=== PATIENT | female | born 1955 | race Caucasian/White ===

== ENCOUNTER → 2016-12-22 | Day surgery (SDC) | payer OTHER ==
[~2016-12-22] VITALS: Ht 165.1 cm; Wt 64.5 kg
[~2016-12-22] MED LIST: ALEN35TA24 PO; BACTOIN EACH NARE; CALC1TAB87 PO; CALC600T25 PO; CYCLOPENTOLATE HCL 1% OPHT SOLN 2 ML BTL ONE; FLURBIPROFEN 0.03% OPHT SOLN 2.5 ML BTL ONE; FLUT50SP EACH NARE; HYALURONIDASE/LIDOCAINE/EPINEPHRINE/BUPIVACAINE 6 ML SYR ONE; HYDR-3133 PO; LIDOCAINE HCL 1% 30 ML VIAL ONE; OMEP40CA2 PO; PHENYLEPHRINE HCL 10% OPTH SOLN 5 ML BTL ONE; PROPARACAINE HCL 0.5% OPHT SOLN 15 ML BTL ONE; PROPOFOL 200 MG/20 ML AMP ONE; SERT-129 PO; SODIUM CHLORID 0.9% 500 ML INJ 500 ML ONE; TROPICAMIDE 1% OPHT SOLN 15 ML BTL ONE
[2016-12-22 07:03] VITALS: BP 126/78; PULSE 58; RESP 16; TEMP 97.8; O2SAT 98
[2016-12-22] MEDS: TOBRAMYCIN/DEXAMETHASONE OPTH OINT 3.5 GM TUBE ONE ×2 (08:15→08:25)
[2016-12-22 08:30] VITALS: TEMP 97.7
[2016-12-22 08:50] VITALS: BP 133/74; PULSE 57; RESP 14; O2SAT 98
--- NOTE | 2016-12-26 10:20 | MP ---
cc: JASON PATEL M.D. DATE OF SURGERY: 12/22/2016 [facility] [id number] PREOPERATIVE DIAGNOSIS Visually significant cataract, left eye. POSTOPERATIVE DIAGNOSIS Visually significant cataract, left eye. OPERATION Phacoemulsification with posterior chamber lens implantation, left eye. SURGEON Jason Patel MD ANESTHESIA Retrobulbar with MAC. COMPLICATIONS None. PROCEDURE After informed consent was obtained, the patient was brought into the operative suite and placed on appropriate monitors by the Anesthesia Service. The patient had received a prior retrobulbar injection of local anesthetic by the Anesthesia Service in the holding area. The patient's operative eye was then prepped and draped in the usual sterile fashion. A wire lid speculum was placed. A paracentesis incision was made in the peripheral cornea with a 1 mm ace keratome. The anterior chamber was filled with viscoelastic. The anterior chamber was then entered through a stepped, clear corneal incision using a sharp 3 mm ace keratome. A circular tear capsulorrhexis was then made with a bent needle cystitome. Following hydrodissection of the lens nucleus with balanced saline, phacoemulsification of the nucleus was performed using a modified chopping technique. The remaining cortex was removed with irrigation/aspiration. The prior two procedures were both performed using the handpieces of the [employer] phaco unit. The capsular bag was then filled with viscoelastic. The intraocular lens was then injected into the capsular bag and positioned. The type of intraocular lens and its power can be found elsewhere in this chart. The remaining viscoelastic was then removed from the anterior chamber with the IA handpiece. The anterior chamber was reformed with balanced saline. The wound was then closed securely with stromal hydration. It was found to be watertight to an intraocular pressure of at least 30 mmHg by palpation. A small amount of balanced salt solution was then removed through the paracentesis site and the intraocular pressure at the end of the case was approximately 20 by palpation. All drapes were then removed. TobraDex ointment was then placed in the eye, which was closed beneath a semi-pressure patch dressing. The patient tolerated this procedure well and left the operating room awake and alert. The patient is to follow-up in my office in the morning. ADDENDUM After the clear corneal incisions were sealed watertight, an 8 mm limbal relaxing incision was made with a 600 micron ace blade, centered around the 110 degree meridian. MD PORTILLO Mann /9:36 AM /10:17 AM
== END | disposition home or self-care (01) ==
LOC: PHSDC 06:38
PROVIDERS: ATTEND Optometrist Occupational Vision
DX: H25.12 Age-related nuclear cataract, left eye (principal)
CPT/HCPCS: 00142; 66984; J7040; V2632

== ENCOUNTER → 2017-01-26 | Day surgery (SDC) | payer OTHER ==
[~2017-01-26] MED LIST changes: -LIDOCAINE HCL 1% 30 ML VIAL ONE; +LIDOCAINE HCL 1% PF 30 ML VIAL ONE
[2017-01-26 07:50] VITALS: PULSE 66
[2017-01-26] MEDS: TOBRAMYCIN/DEXAMETHASONE OPTH OINT 3.5 GM TUBE ONE ×2 (08:53→09:06)
[2017-01-26 09:08] VITALS: TEMP 98
[2017-01-26 09:30] VITALS: BP 110/62; PULSE 65; RESP 16; O2SAT 99
--- NOTE | 2017-01-26 10:48 | MP ---
cc: JASON PATEL M.D. [facility] #[id number] DATE OF SURGERY 01/26/2017 PREOPERATIVE DIAGNOSIS Visually significant cataract right eye. POSTOPERATIVE DIAGNOSIS Visually significant cataract right eye. OPERATION Phacoemulsification with posterior chamber lens implantation, right eye. SURGEON Jason Patel MD ANESTHESIA Retrobulbar with MAC. COMPLICATIONS None PROCEDURE After informed consent was obtained, the patient was brought into the operative suite and placed on appropriate monitors by the Anesthesia Service. The patient had received a prior retrobulbar injection of local anesthetic by the Anesthesia Service in the holding area. The patient's operative eye was then prepped and draped in the usual sterile fashion. A wire lid speculum was placed. A paracentesis incision was made in the peripheral cornea with a 1 mm ace keratome. The anterior chamber was filled with viscoelastic. The anterior chamber was then entered through a stepped, clear corneal incision using a sharp 3 mm ace keratome. A circular tear capsulorrhexis was then made with a bent needle cystitome. Following hydrodissection of the lens nucleus with balanced saline, phacoemulsification of the nucleus was performed using a modified chopping technique. The remaining cortex was removed with irrigation/aspiration. The prior two procedures were both performed using the handpieces of the [employer] phaco unit. The capsular bag was then filled with viscoelastic. The intraocular lens was then injected into the capsular bag and positioned. The type of intraocular lens and its power can be found elsewhere in this chart. The remaining viscoelastic was then removed from the anterior chamber with the IA handpiece. The anterior chamber was reformed with balanced saline. The wound was then closed securely with stromal hydration. It was found to be watertight to an intraocular pressure of at least 30 mmHg by palpation. A small amount of balanced salt solution was then removed through the paracentesis site and the intraocular pressure at the end of the case was approximately 20 by palpation. All drapes were then removed. TobraDex ointment was then placed in the eye, which was closed beneath a semi-pressure patch dressing. The patient tolerated this procedure well and left the operating room awake and alert. The patient is to follow-up in my office in the morning. ADDENDUM After the clear corneal incisions were sealed water tight, an 8 mm limbal relaxing incision was made with a 600 micron ace blade, centered around the 75 degree meridian. MD SANAM Mann /10:33 AM /10:46 AM
== END | disposition home or self-care (01) ==
LOC: PHSDC 06:31
PROVIDERS: ATTEND Optometrist Occupational Vision
DX: H25.11 Age-related nuclear cataract, right eye (principal); M81.0 Age-related osteoporosis without current pathological fracture; F32.9 Major depressive disorder, single episode, unspecified; K21.9 Gastro-esophageal reflux disease without esophagitis
CPT/HCPCS: 66984; J7040; V2632

== ENCOUNTER 2017-06-04 16:31 | Emergency (ER) | payer OTHER ==
[~2017-06-04 16:31] MED LIST changes: -ALEN35TA24 PO; -CYCLOPENTOLATE HCL 1% OPHT SOLN 2 ML BTL ONE; -FLURBIPROFEN 0.03% OPHT SOLN 2.5 ML BTL ONE; -HYALURONIDASE/LIDOCAINE/EPINEPHRINE/BUPIVACAINE 6 ML SYR ONE; -LIDOCAINE HCL 1% PF 30 ML VIAL ONE; -PHENYLEPHRINE HCL 10% OPTH SOLN 5 ML BTL ONE; -PROPARACAINE HCL 0.5% OPHT SOLN 15 ML BTL ONE; -PROPOFOL 200 MG/20 ML AMP ONE; -SODIUM CHLORID 0.9% 500 ML INJ 500 ML ONE; -TROPICAMIDE 1% OPHT SOLN 15 ML BTL ONE
[2017-06-04 16:33] VITALS: BP 123/73; PULSE 77; RESP 20; TEMP 97.3; O2SAT 95
[2017-06-04] MEDS ORDERED: SODIUM CHLORIDE 0.9% FLUSH 10 ML FLUSH IVF PRN (16:45)
[2017-06-04] MEDS ORDERED: methylPREDNISolone SOD SUCC 125 MG/2 ML VIAL IVP ONE (16:45)
[2017-06-04] MEDS ORDERED: AZITHROMYCIN 250 MG TAB PO ONE (16:45)
--- NOTE | 2017-06-04 16:53 | PD ---
HPI Chief Complaint: Respiratory Symptoms Time Seen by Provider: 16:46 Travel History International Travel<30 days: No Contact w/Intl Traveler<30days: No History of Present Illness HPI Patient is a 61-year-old female presenting for evaluation of one month of a cough as well as nasal congestion. Patient states her cough is productive, she has trialed Mucinex as well as DayQuil and NyQuil with no relief her symptoms. She denies any fever, chills, shortness of breath, chest pain, abdominal pain, nausea, vomiting. Past medical history significant for GERD and depression. She has occurred daily tobacco user but has no formal diagnosis of COPD. She has no complaints of pain at this time. [facility] Past Medical History Depression: Yes Cancer: No Cardiovascular Problems: No Diabetes: No Endocrine: No GERD: Yes Genitourinary: No Hepatitis: No Hiatal Hernia: No Immune Disorder: No Musculoskeletal: Yes (OSTEOPOROSIS) Neurologic: No Psychiatric: No Reproductive: No Respiratory: No Thyroid Disease: No Past Surgical History Abdominal Surgery: No AICD: No Cardiac Surgery: No Ear Surgery: No Endocrine Surgery: No Eye Surgery: Yes (LEFT CATARACT 11/2016) Genitourinary Surgery: No Gynecologic Surgery: No Joint Replacement: No Oral Surgery: No Pacemaker: No Thoracic Surgery: No Social History Tobacco Use: Yes Substance Use: No Allergies-Medications (Allergen,Severity, Reaction): Coded Allergies: No Known Allergies (Unverified , 06/04/17) Reported Meds & Prescriptions Reported Meds & Active Scripts Active Sertraline (Sertraline HCl) 100 Mg Tab 100 Mg PO DAILY Omeprazole 40 Mg Cap 40 Mg PO DAILY Review of Systems Except as stated in HPI: all other systems reviewed are Neg HENT: Positive: Congestion Respiratory: Positive: Cough Physical Exam Narrative GENERAL: Well-developed, well-nourished, alert female. Resting comfortably in no acute distress. SKIN: Warm and dry. HEAD: Atraumatic. Normocephalic. EYES: Pupils equal and round. No scleral icterus. No injection or drainage. ENT: No nasal bleeding or discharge. Mucous membranes pink and moist. NECK: Trachea midline. No JVD. CARDIOVASCULAR: Regular rate and rhythm. RESPIRATORY: No accessory muscle use. Clear to auscultation. Breath sounds equal bilaterally. GASTROINTESTINAL: Abdomen soft, non-tender, nondistended. Hepatic and splenic margins not palpable. MUSCULOSKELETAL: Extremities without clubbing, cyanosis, or edema. No obvious deformities. NEUROLOGICAL: Awake and alert. No obvious cranial nerve deficits. Motor grossly within normal limits. Five out of 5 muscle strength in the arms and legs. Normal speech. PSYCHIATRIC: Appropriate mood and affect; insight and judgment normal. Data Data Last Documented VS Vital Signs Date Time Temp Pulse Resp B/P (MAP) Pulse Ox O2 Delivery O2 Flow Rate FiO2 06/04/17 17:10 18 94 Room Air 06/04/17 16:33 97.3 77 123/73 (90) Orders Orders Chest, Single Ap (06/04/17 16:44) Methylprednisolone So Succ Inj (Solumedr (06/04/17 16:45) Albuterol-Ipratropium Neb (Duoneb Neb) (06/04/17 16:45) Sodium Chloride 0.9% Flush (Ns Flush) (06/04/17 16:45) Iv Access Insert/Monitor (06/04/17 16:44) Azithromycin (Zithromax) (06/04/17 16:45) MDM Medical Decision Making Medical Screen Exam Complete: Yes Emergency Medical Condition: Yes Interpretation(s) Vital Signs Date Time Temp Pulse Resp B/P (MAP) Pulse Ox O2 Delivery O2 Flow Rate FiO2 06/04/17 16:33 97.3 77 20 123/73 (90) 95 Room Air Differential Diagnosis Bronchitis versus pneumonia versus URI versus COPD versus other Narrative Course Pt is a 61 year old female presenting with 1 month of a non-productive cough. Pt 's VSS, she appears well. CXR and nebs ordered. CXR read by radiologist shows diffuse interstitial prominence. Basilar parenchymal opacities left worse than right. Baseline bullous emphysema. Pt was given a dose of azithromycin and solu-medrol in the ED. She was encouraged to avoid tobacco use. She was educated on COPD Pt is advised to follow up with her PCP, avoid tobacco use, complete abx as prescribed. Pt verbalized understanding. Pt is stable for discharge. Diagnosis Primary Impression: Bronchitis Referrals: Primary Care Physician 3 days Patient Instructions: Acute Bronchitis (ED), General Instructions Additional Instructions: Follow up with your primary doctor Complete full course of antibiotics as prescribed Avoid smoking Return to the Emergency department for any new or worsening symptoms Med/Other Pt SpecificInfo: Prescription(s) given Scripts Prednisone (Prednisone) 50 Mg Tab 50 MG PO DAILY for 5 Days, TAB 0 Refills Prov: Yuliya Amezquita 06/04/17 Azithromycin (Azithromycin) 250 Mg Tab 250 MG PO DAILY for Infection for 5 Days, TAB 0 Refills Prov: Yuliya Amezquita 06/04/17 Disposition: 01 DISCHARGE HOME Condition: Stable Yuliya Amezquita Jun 04, 2017 16:53
--- NOTE | 2017-06-04 17:03 | RADRPT ---
EXAM DATE/TIME: 06/04/2017 16:59 [place] COMPARISON: No previous studies available for comparison. INDICATIONS : Cough. MEDICAL HISTORY : None. SURGICAL HISTORY : None. ENCOUNTER: Initial ACUITY: 2 weeks PAIN SCORE: 0/10 LOCATION: Bilateral chest FINDINGS: Baseline bullous emphysema. Diffuse fine interstitial prominence of undetermined chronicity. Mild str eaky parenchymal opacities in the bases, left worse than right. No evidence of effusion. Cardiac cont ours are satisfactory. CONCLUSION: Diffuse interstitial prominence. Basilar parenchymal opacities left worse than right Lincoln Hair MD on June 04, 2017 at 17:01 Board Certified Radiologist. This report was verified electronically.
[2017-06-04] MEDS: RESP: ALBUTEROL 2.5 MG/IPRATROPIUM 0.5 MG NEB (SCH) INH ×2 (17:04→17:05)
[2017-06-04] MEDS ORDERED: PRED50 PO (18:04)
[2017-06-04] MEDS ORDERED: AZIT250T3 PO (18:04)
[2017-06-04 18:26] VITALS: BP 121/55; PULSE 89; RESP 16; O2SAT 93
[2017-06-22] MEDS ORDERED: SERT-129 PO (14:52)
[2017-06-22] MEDS ORDERED: ALEN35TA24 PO (14:52)
== END 2017-06-04 18:29 | disposition home or self-care (01) ==
LOC: NEPC 16:31
DX: J40 Bronchitis, not specified as acute or chronic (principal); Z72.0 Tobacco use
CPT/HCPCS: 71010; 94640; 94664; 96374; 99285; J2930